=== PATIENT | female | born 1970 ===

== ENCOUNTER 2020-07-07 02:47 | Inpatient (IN) | payer MEDICARE, OTHER ==
[2020-07-07 10:51] LABS: Basophils % (Auto) 0.3 % (0.0-1.8); Eosinophils # (Auto) 0.1 K/mm3 (0.0-0.4); Eosinophils % (Auto) 0.3 % (0.0-4.3); Hematocrit 45.2 % (30.3-42.9); Hemoglobin 14.6 gm/dl (10.1-14.3); Lymphocytes # (Auto) 4.5 K/mm3 (1.2-5.4); Lymphocytes % (Auto) 28.9 % (13.4-35.0); Mean Corpuscular HGB Conc 32 % (30-34); Mean Corpuscular Volume 85 fl (79-97); Monocytes # (Auto) 1.1 K/mm3 (0.0-0.8); Monocytes % (Auto) 7.2 % (0.0-7.3); Platelet Count 393 K/mm3 (140-440); Red Blood Count 5.29 M/mm3 (3.65-5.03); Red Cell Distribution Width 17.7 % (13.2-15.2)
[2020-07-07 11:11] LABS: Albumin 4.7 g/dL (3.9-5); Calcium 10.2 mg/dL (8.4-10.2); Chol/HDL Ratio 3.97 %
--- NOTE | 2020-07-07 13:54 | Consultation ---
History of Present Illness - Reason for Consult Medical management Requesting physician: JUSTINO PETTY - History of Present Illness 49 YO Female with HTN, DM, Obesity Hypoventilation Syndrome admitted to [facility] for Psychiatric stabilization. Consult placed by Dr. Petty for medical management. Patient seen and evaluated in the recreation room. Patient resting comfortably. No reported nursing events. Patient denies pain. No reports of fever, chills, chest pain, palpitation, productive cough, skin rash, recent ill contacts, or known exposure to COVID-19. Past History Past Medical History: diabetes, hypertension Past Surgical History: No surgical history, Other (Reviewed) Social history: single. denies: smoking, alcohol abuse, prescription drug abuse Family history: diabetes, hypertension Medications and Allergies Allergies Allergy/AdvReac Type Severity Reaction Status Date / Time No Known Allergies Allergy Unverified 07/07/20 06:19 Home Medications Medication Instructions Recorded Confirmed Last Taken Type ALPRAZolam 1 mg PO BID 07/07/20 07/07/20 Unknown History ALPRAZolam [Xanax TAB] 0.25 mg PO BID PRN 07/07/20 07/07/[address] [DepCandi DR] 500 mg PO BID 07/07/20 07/07/20 Unknown History Gabapentin 400 mg PO TID 07/07/20 07/07/20 Unknown History Percocet 10/325 mg 10 mg PO TID 07/07/20 07/07/20 Unknown History Quetiapine Fumarate [SEROquel] 300 mg PO HS 07/07/20 07/07/20 Unknown History Sulfamethoxazole/Trimethoprim 1 each PO BID 07/07/20 07/07/20 Unknown History [Bactrim DS TAB] Venlafaxine [Effexor] 150 mg PO DAILY 07/07/20 07/07/20 Unknown History lisinopriL [Zestril] 20 mg PO DAILY 07/07/20 07/07/20 Unknown History Review of Systems Constitutional: no weight gain, no chills, no sweats Ears, nose, mouth and throat: no ear pain, no tinnitis, no nose pain, no nasal congestion, no nasal discharge Cardiovascular: no orthopnea, no edema, no syncope Respiratory: no excessive sputum, no hemoptysis Genitourinary Female: no stress incontinence, no post void dribbling, no incomplete emptying Rectal: no pain, no incontinence, no bleeding Musculoskeletal: no neck stiffness, no shooting arm pain, no low back pain, no shooting leg pain, no leg numbness/tingling Integumentary: no rash, no pruritis, no redness, no sores, no wounds Neurological: no head injury, no transient paralysis, no paralysis, no parathesias, no numbness, no tingling Psychiatric: no anxiety, no change in sleep habits, no sleep disturbances, no hypersomnia Endocrine: no cold intolerance, no polyphagia, no polyuria, no nocturia Hematologic/Lymphatic: no easy bruising, no easy bleeding Allergic/Immunologic: no urticaria, no allergic rhinitis, no wheezing Exam - Constitutional General appearance: Present: no acute distress, well-nourished - EENT Eyes: Present: PERRL ENT: hearing intact, clear oral mucosa - Neck Neck: Present: supple, normal ROM - Respiratory Respiratory effort: normal Respiratory: bilateral: CTA - Cardiovascular Heart Sounds: Present: S1 & S2. Absent: rub, click - Extremities Extremities: pulses symmetrical, No edema Peripheral Pulses: within normal limits - Abdominal General gastrointestinal: Present: soft, non-tender, non-distended, normal bowel sounds Female genitourinary: Present: normal - Integumentary Integumentary: Present: clear, warm, dry - Musculoskeletal Musculoskeletal: gait normal, strength equal bilaterally - Psychiatric Psychiatric: appropriate mood/affect, intact judgment & insight - Neurologic Neurologic: CNII-XII intact, moves all extremities Results - Labs CBC & Chem 7: 07/07/20 10:13 07/07/20 10:13 Labs: Abnormal lab results 07/07/20 07/07/20 07/07/20 Range/Units 10:13 10:13 10:22 WBC 15.6 H (4.5-11.0) K/mm3 RBC 5.29 H (3.65-5.03) M/mm3 Hgb 14.6 H (10.1-14.3) gm/dl Hct 45.2 H (30.3-42.9) % RDW 17.7 H (13.2-15.2) % [place] # (Auto) 1.1 H (0.0-0.8) K/mm3 Seg Neutrophils # 9.9 H (1.8-7.7) K/mm3 Potassium 3.3 L (3.6-5.0) mmol/L Chloride 97.7 L (98-107) mmol/L Glucose 184 H (65-100) mg/dL POC Glucose 148 H (70-105) mg/dL Total Protein 8.5 H (6.3-8.2) g/dL Triglycerides 178 H (2-149) mg/dL Assessment and Plan - Patient Problems (1) Hypertension Current Visit: Yes Status: Acute Qualifiers: Hypertension type: essential hypertension Qualified Code(s): I10 - Essential (primary) hypertension Plan to address problem: Monitor blood pressure every shift, continue medical management. (2) Diabetes Current Visit: Yes Status: Acute Plan to address problem: Insulin protocol, consistent carbohydrate diet, Accu-Chek.
[2020-07-07] MEDS: LISINOPRIL 20 MG TAB PO SCH (16:00)
[2020-07-07] MEDS ORDERED: PERCOCET PO SCH (20:00)
[2020-07-07] MEDS ORDERED: ALPRAZolam 0.25 MG TAB PO PRN (20:44)
[2020-07-07] MEDS: QUEtiapine 100 MG TAB PO SCH (21:29)
[2020-07-07] MEDS: oxyCODONE 5 MG TAB PO SCH (21:30)
[2020-07-07] MEDS: oxyCODONE /ACETAMINOPHEN 5-325MG TAB PO SCH (21:34)
[2020-07-07] MEDS: GABAPENTIN 400 MG CAP PO SCH (21:34)
[2020-07-07] MEDS: DIVALPROEX DR 500 MG TAB PO SCH (21:35)
[2020-07-07] MEDS: SULFAMETHOXAZOLE/TRIMETHOPRIM 800/160MG DS TAB PO SCH (21:35)
[2020-07-07] MEDS: ALPRAZolam 1 MG TAB PO SCH (21:35)
[2020-07-07] MEDS ORDERED: ALPRAZOLAM 1 MG PO SCH (22:00)
[2020-07-07] MEDS ORDERED: NON-FORMULARY EACH (Quetiapine Fumarate [Seroquel] 300 MG Tablet) PO SCH (22:00)
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
[2020-07-08] MEDS: DIVALPROEX DR 500 MG TAB PO SCH ×2 (09:39→21:20)
[2020-07-08] MEDS: GABAPENTIN 400 MG CAP PO SCH ×3 (09:39→20:00)
[2020-07-08] MEDS: MELOXICAM 7.5 MG TAB PO SCH (09:39)
[2020-07-08] MEDS: LISINOPRIL 20 MG TAB PO SCH (09:40)
[2020-07-08] MEDS: VENLAFAXINE 75 MG TAB PO SCH (09:40)
[2020-07-08] MEDS: ALPRAZolam 1 MG TAB PO SCH ×2 (09:40→21:20)
[2020-07-08] MEDS: SULFAMETHOXAZOLE/TRIMETHOPRIM 800/160MG DS TAB PO SCH ×2 (09:40→21:20)
[2020-07-08] MEDS: oxyCODONE 5 MG TAB PO SCH (09:43)
[2020-07-08] MEDS: oxyCODONE /ACETAMINOPHEN 5-325MG TAB PO SCH (09:44)
[2020-07-08] MEDS ORDERED: oxyCODONE /ACETAMINOPHEN 5-325MG TAB PO PRN (10:10)
[2020-07-08] MEDS: oxyCODONE /ACETAMINOPHEN 5-325MG TAB PO PRN ×2 (12:04→20:20)
[2020-07-08] MEDS: PRAZOSIN 1 MG CAP PO SCH (21:20)
[2020-07-08] MEDS: QUEtiapine 100 MG TAB PO SCH (21:22)
--- NOTE | 2020-07-09 08:03 | Progress Note ---
Subjective - Reason for Consult Consult date: 07/09/20 Reason for consult: MHE Requesting physician: JUSTINO PETTY - Chief Complaint Chief complaint: Psych Nurse: pt rested well during the night, presents as sleeping for approximately 9hrs, no distress noted, will continue to monitor for safety. pt spent the evening in her room lying in bed, pt is alert and orientedx4, calm and cooperative, able to make needs known, reported being worried about her son; she stated that her mother want to take her son away from her. pt reassured. pt's mood is stable, affect is appropriate. pt is complaint with medication,con sumed 100% of bedtime snack, percocet 5/325mg po given for hip back with bedtime medication with good effect, no distress noted, will continue to monitor for safety. pt rested well during the night, presents as sleeping for approximately 9hrs, no distress noted, will continue to monitor for safety. REVIEW OF SYSTEMS Constitutional: Negative for weight loss ENT: Negative for stridor Respiratory: Negative for cough or hemoptysis All other systems reviewed and are negative MENTAL STATUS EXAMINATION General Appearance and Behavior: Age appropriate, good hygiene, wearing appropriate clothes,, good eye contact Cooperation: Participating/engaged, but Guarded Psychomotor Behavior: Psychomotor normal Mood: depressed Affect and affective range: irritable, labile Thought Process: illogical Thought Content: hopelessness, helplessness Speech: Normal rate, volume and rythm Intellectual Functioning: Average Suicidal Ideation: Intermittent SI Homicidal Ideation: Denies HI Impulse Control: Impaired Insight and Judgment: Limited insight and judgment Memory: Normal Attention: Normal Orientation: Alert, oriented Assessment and Plan - Psychiatric problem (1) MDD (major depressive disorder), recurrent episode, severe Current Visit: Yes Status: Acute F33.2 (2) Schizoaffective disorder Current Visit: Yes Status: Acute F25.9 Treatment Plan Will restart home medications Patient admitted for inpatient psychiatric evaluation, medication adjustment and close monitoring The patient's behavior, mood, sleep and appetite will be closely monitored. Patient enrolled in individual and group therapeutic sessions and encouraged to attend. Patient provided with a safe and structured environment. Patient's physical health needs will be addressed by the Hospitalist. Hospitalist Consulted Labs including CBC, CMP, Lipid profile and Hemoglobin A1C levels ordered for baseline reference Social Assessment will be completed and the Bag Sorter will work with patient and family to ensure a suitable and safe disposition Medication adjustment will be made as clinically indicated Usual Wellness Christianity/Preservation: - Start Trazodone 50 mg po QHS & 50 mg po QHS PRN between 10 PM & 2 AM for insomnia - Start Melatonin 5 mg po QHS to promote circadian rhythm - Start [place]-3 for brain health, reduce impulsivity, and as adjunctive treatment for mood disorder, continue upon discharge given overall benefits. - Start B1 prophylaxis with 200 mg po for 5 days The patient agreed on the treatment plan, understood the risk, benefit, alternative treatment, potential consequence of no treatment, and gave informed consent. Initial Certification Inpatient psych services: I certify that the inpatient psychiatric services are required for treatment that could reasonably be expected to improve the patient's condition. Estimated days: 7 Post hospital care: primary care provider, psychiatric provider Mental Status Exam - Vital signs Last Vital Signs Temp 97.5 F L 07/08/20 20:00 Pulse 89 07/08/20 21:20 Resp 18 07/08/20 20:20 BP 121/67 07/08/20 21:20 Pulse Ox 96 07/08/20 20:00 Assessment and Plan - Patient Problems (1) MDD (major depressive disorder), recurrent episode, severe Current Visit: Yes Status: Acute (2) Schizoaffective disorder Current Visit: Yes Status: Acute
--- NOTE | 2020-07-09 08:08 | Progress Note ---
Subjective Date of service: 07/09/20 Principal diagnosis: MDD (major depressive disorder), recurrent episode, severe Subjective Comment: Chief complaint: Psych Nurse: pt rested well during the night, presents as sleeping for approximately 9hrs, no distress noted, will continue to monitor for safety. pt spent the evening in her room lying in bed, pt is alert and orientedx4, calm and cooperative, able to make needs known, reported being worried about her son; she stated that her mother want to take her son away from her. pt reassured. pt's mood is stable, affect is appropriate. pt is complaint with medication,consumed 100% of bedtime snack, percocet 5/325mg po given for hip back with bedtime medication with good effect, no distress noted, will continue to monitor for safety. pt rested well during the night, presents as sleeping for approximately 9hrs, no distress noted, will continue to monitor for safety. Psych Progress Patient seen this AM, endorses mood as sad but trying to get better, lovers her mom says their relationship keeps getting strained and is not good for her health. SHe reports living with mom for over 8 years, and now it seems like mom wants her out of the house based on their poor phone conversation. She says she is more concerned of her son, moving into a place with unknown security and new school and environment. SHe denies SI, HI but endorses being very depressed. Improved sleep and appetite just okay. REVIEW OF SYSTEMS Constitutional: Negative for weight loss ENT: Negative for stridor Respiratory: Negative for cough or hemoptysis All other systems reviewed and are negative MENTAL STATUS EXAMINATION General Appearance and Behavior: Age appropriate, good hygiene, wearing appropriate clothes,, good eye contact Cooperation: Participating/engaged, Psychomotor Behavior: Psychomotor normal Mood: depressed Affect and affective range: labile Thought Process: logical Thought Content: hopelessness, helplessness Speech: Normal rate, volume and rythm Intellectual Functioning: Average Suicidal Ideation: denies Homicidal Ideation: Denies HI Impulse Control: unimpaired Insight and Judgment: Limited insight and judgment Memory: Normal Attention: Normal Orientation: Alert, oriented Assessment and Plan - Psychiatric problem (1) MDD (major depressive disorder), recurrent episode, severe Current Visit: Yes Status: Acute F33.2 (2) Schizoaffective disorder Current Visit: Yes Status: Acute F25.9 Treatment Plan Continue current medications Patient admitted for inpatient psychiatric evaluation, medication adjustment and close monitoring The patient's behavior, mood, sleep and appetite will be closely monitored. Patient enrolled in individual and group therapeutic sessions and encouraged to attend. Patient provided with a safe and structured environment. Patient's physical health needs will be addressed by the Hospitalist. Hospitalist Consulted Labs including CBC, CMP, Lipid profile and Hemoglobin A1C levels ordered for baseline reference Social Assessment will be completed and the Guard Manager will work with patient and family to ensure a suitable and safe disposition Medication adjustment will be made as clinically indicated Usual Wellness Taoism/Preservation: - Start Trazodone 50 mg po QHS & 50 mg po QHS PRN between 10 PM & 2 AM for insomnia - Start Melatonin 5 mg po QHS to promote circadian rhythm - Start [place]-3 for brain health, reduce impulsivity, and as adjunctive treatment for mood disorder, continue upon discharge given overall benefits. - Start B1 prophylaxis with 200 mg po for 5 days The patient agreed on the treatment plan, understood the risk, benefit, alternative treatment, potential consequence of no treatment, and gave informed consent. Initial Certification Inpatient psych services: I certify that the inpatient psychiatric services are required for treatment that could reasonably be expected to improve the patient's condition. Estimated days: 7 Post hospital care: primary care provider, psychiatric provider Assessment and Plan - Patient Problems (1) MDD (major depressive disorder), recurrent episode, severe Current Visit: Yes Status: Acute (2) Schizoaffective disorder Current Visit: Yes Status: Acute Medications and Allergies Allergies Allergy/AdvReac Type Severity Reaction Status Date / Time No Known Allergies Allergy Unverified 07/07/20 06:19 Home Medications Medication Instructions Recorded Confirmed Last Taken Type ALPRAZolam 1 mg PO BID 07/07/20 07/07/20 Unknown History ALPRAZolam [Xanax TAB] 0.25 mg PO BID PRN 07/07/20 07/07/20 Unknown History Divalproex [Jessica RIVERA] 500 mg PO BID 07/07/20 07/07/20 Unknown History Gabapentin 400 mg PO TID 07/07/20 07/07/20 Unknown History Percocet 10/325 mg 10 mg PO TID 07/07/20 07/07/20 Unknown History Quetiapine Fumarate [SEROquel] 300 mg PO HS 07/07/20 07/07/20 Unknown History Sulfamethoxazole/Trimethoprim 1 each PO BID 07/07/20 07/07/20 Unknown History [Bactrim DS TAB] Venlafaxine [Effexor] 150 mg PO DAILY 07/07/20 07/07/20 Unknown History lisinopriL [Zestril] 20 mg PO DAILY 07/07/20 07/07/20 Unknown History Active Meds: Active Medications Alprazolam (Alprazolam 1 Mg Tab) 1 mg PO BID [facility] Last Admin: 07/08/20 21:20 Dose: 1 mg Documented by: Alprazolam (Alprazolam 0.25 Mg Tab) 0.25 mg PO BID PRN PRN Reason: Anxiety Divalproex Sodium (Divalproex Dr 500 Mg Tab) 500 mg PO BID [facility] Last Admin: 07/08/20 21:20 Dose: 500 mg Documented by: Gabapentin (Gabapentin 400 Mg Cap) 400 mg PO TID [facility] Last Admin: 07/08/20 20:00 Dose: 400 mg Documented by: Lisinopril (Lisinopril 20 Mg Tab) 20 mg PO DAILY [facility] Last Admin: 07/08/20 09:40 Dose: 20 mg Documented by: Meloxicam (Meloxicam 7.5 Mg Tab) 7.5 mg PO QDAY [facility] Last Admin: 07/08/20 09:39 Dose: 7.5 mg Documented by: Oxycodone/Acetaminophen (Oxycodone /Acetaminophen 5-325mg Tab) 1 tab PO Q8H PRN PRN Reason: Pain, Moderate (4-6) Last Admin: 07/08/20 20:20 Dose: 1 tab Documented by: Prazosin HCl (Prazosin 1 Mg Cap) 3 mg PO QHS [facility] Last Admin: 07/08/20 21:20 Dose: 3 mg Documented by: Quetiapine Fumarate (Quetiapine 100 Mg Tab) 300 mg PO QHS [facility] Last Admin: 07/08/20 21:22 Dose: 300 mg Documented by: Trimethoprim/Sulfamethoxazole (Sulfamethoxazole/Trimethoprim 800/160mg Ds Tab) 1 each PO BID [facility]; Protocol Stop: 07/14/20 10:01 Last Admin: 07/08/20 21:20 Dose: 1 each Documented by: Venlafaxine HCl (Venlafaxine 75 Mg Tab) 150 mg PO DAILY [facility] Last Admin: 07/08/20 09:40 Dose: 150 mg Documented by: Results - Results Labs/Vitals: Laboratory Last Values WBC 15.6 K/mm3 (4.5-11.0) H 07/07/20 10:13 RBC 5.29 M/mm3 (3.65-5.03) H 07/07/20 10:13 Hgb 14.6 gm/dl (10.1-14.3) H 07/07/20 10:13 Hct 45.2 % (30.3-42.9) H 07/07/20 10:13 MCV 85 fl (79-97) 07/07/20 10:13 MCH 28 pg (28-32) 07/07/20 10:13 MCHC 32 % (30-34) 07/07/20 10:13 RDW 17.7 % (13.2-15.2) H 07/07/20 10:13 Plt Count 393 K/mm3 (140-440) 07/07/20 10:13 Lymph % (Auto) 28.9 % (13.4-35.0) 07/07/20 10:13 [place] % (Auto) 7.2 % (0.0-7.3) 07/07/20 10:13 Eos % (Auto) 0.3 % (0.0-4.3) 07/07/20 10:13 Baso % (Auto) 0.3 % (0.0-1.8) 07/07/20 10:13 Lymph # (Auto) 4.5 K/mm3 (1.2-5.4) 07/07/20 10:13 [place] # (Auto) 1.1 K/mm3 (0.0-0.8) H 07/07/20 10:13 Eos # (Auto) 0.1 K/mm3 (0.0-0.4) 07/07/20 10:13 Baso # (Auto) 0.0 K/mm3 (0.0-0.1) 07/07/20 10:13 Seg Neutrophils % 63.3 % (40.0-70.0) 07/07/20 10:13 Seg Neutrophils # 9.9 K/mm3 (1.8-7.7) H 07/07/20 10:13 Sodium 140 mmol/L (137-145) 07/07/20 10:13 Potassium 3.3 mmol/L (3.6-5.0) L 07/07/20 10:13 Chloride 97.7 mmol/L (98-107) L 07/07/20 10:13 Carbon Dioxide 26 mmol/L (22-30) 07/07/20 10:13 Anion Gap 20 mmol/L 07/07/20 10:13 BUN 13 mg/dL (7-17) 07/07/20 10:13 Creatinine 1.1 mg/dL (0.6-1.2) 07/07/20 10:13 Estimated GFR 53 ml/min 07/07/20 10:13 BUN/Creatinine Ratio 12 % 07/07/20 10:13 Glucose 184 mg/dL (65-100) H 07/07/20 10:13 POC Glucose 103 mg/dL (70-105) 07/09/20 06:29 Hemoglobin A1c 5.8 % (4-6) 07/07/20 10:13 Calcium 10.2 mg/dL (8.4-10.2) 07/07/20 10:13 Total Bilirubin 0.40 mg/dL (0.1-1.2) 07/07/20 10:13 AST 28 units/L (5-40) 07/07/20 10:13 ALT 27 units/L (7-56) 07/07/20 10:13 Alkaline Phosphatase 81 units/L (35-129) 07/07/20 10:13 Total Protein 8.5 g/dL (6.3-8.2) H 07/07/20 10:13 Albumin 4.7 g/dL (3.9-5) 07/07/20 10:13 Albumin/Globulin Ratio 1.2 % 07/07/20 10:13 Triglycerides 178 mg/dL (2-149) H 07/07/20 10:13 Cholesterol 187 mg/dL (50-199) 07/07/20 10:13 LDL Cholesterol Direct 110 mg/dL (50-130) 07/07/20 10:13 HDL Cholesterol 47 mg/dL (40-59) 07/07/20 10:13 Cholesterol/HDL Ratio 3.97 % 07/07/20 10:13 TSH 0.534 mlU/mL (0.270-4.200) 07/07/20 10:13 Last Vital Signs Temp 97.5 F L 07/08/20 20:00 Pulse 89 07/08/20 21:20 Resp 18 07/08/20 20:20 BP 121/67 07/08/20 21:20 Pulse Ox 96 07/08/20 20:00
[2020-07-09] MEDS: DIVALPROEX DR 500 MG TAB PO SCH ×2 (09:15→21:13)
[2020-07-09] MEDS: ALPRAZolam 1 MG TAB PO SCH ×2 (09:15→21:13)
[2020-07-09] MEDS: LISINOPRIL 20 MG TAB PO SCH (09:15)
[2020-07-09] MEDS: VENLAFAXINE 75 MG TAB PO SCH (09:15)
[2020-07-09] MEDS: GABAPENTIN 400 MG CAP PO SCH ×3 (09:15→21:12)
[2020-07-09] MEDS: MELOXICAM 7.5 MG TAB PO SCH (09:16)
[2020-07-09] MEDS: SULFAMETHOXAZOLE/TRIMETHOPRIM 800/160MG DS TAB PO SCH ×2 (09:16→21:13)
[2020-07-09] MEDS: oxyCODONE /ACETAMINOPHEN 5-325MG TAB PO PRN ×2 (12:32→23:35)
[2020-07-09] MEDS: PRAZOSIN 1 MG CAP PO SCH (21:11)
[2020-07-09] MEDS: QUEtiapine 100 MG TAB PO SCH (21:13)
--- NOTE | 2020-07-10 08:15 | Progress Note ---
Subjective Date of service: 07/10/20 Principal diagnosis: MDD (major depressive disorder), recurrent episode, severe Subjective Comment: Psych Nurse: Patient slept late this morning. The rest of the day she has spent in the activity room watching tv and resting in the recliner. She requested pain medication at around 1230. Percocet was given and it was effective. Patient is A&O x 4. She denies si/hi/ah/vh. Patient presents as sad and depressed. Her mother called this morning and requested a call from social work Saturday morning. Patient is eating 100% of meals and is medication compliant. Will continue to monitor patient for safety. Psych Progress Patient seen this a.m., patient reports sleeping good, reports her mood has been okay, she also reports improved appetite and states that is a good sign for her that she is getting better. Patient denies SI HI, denies auditory visual hallucination, endorses intermittent sadness when she thinks about her housing situation and his son, but reports adequate communication with his son and that makes her happy. Patient also endorses doing hygiene. REVIEW OF SYSTEMS Constitutional: Negative for weight loss ENT: Negative for stridor Respiratory: Negative for cough or hemoptysis All other systems reviewed and are negative MENTAL STATUS EXAMINATION General Appearance and Behavior: Age appropriate, good hygiene, wearing appropriate clothes,, good eye contact Cooperation: Participating/engaged, Psychomotor Behavior: Psychomotor normal Mood: getting better Affect and affective range: congruent with affect Thought Process: logical Thought Content: within reality Speech: Normal rate, volume and rythm Intellectual Functioning: Average Suicidal Ideation: denies SI Homicidal Ideation: Denies HI Impulse Control: unimpaired Insight and Judgment: Improved insight and judgment Memory: Normal Attention: Normal Orientation: Alert, oriented Assessment and Plan - Psychiatric problem (1) MDD (major depressive disorder), recurrent episode, severe Current Visit: Yes Status: Acute F33.2 (2) Schizoaffective disorder Current Visit: Yes Status: Acute F25.9 Treatment Plan Continue current medications Patient admitted for inpatient psychiatric evaluation, medication adjustment and close monitoring The patient's behavior, mood, sleep and appetite will be closely monitored. Patient enrolled in individual and group therapeutic sessions and encouraged to attend. Patient provided with a safe and structured environment. Patient's physical health needs will be addressed by the Hospitalist. Hospitalist Consulted Labs including CBC, CMP, Lipid profile and Hemoglobin A1C levels ordered for baseline reference Social Assessment will be completed and the Formula Checker will work with patient and family to ensure a suitable and safe disposition Medication adjustment will be made as clinically indicated Usual Wellness Restorationist/Preservation: - Start Trazodone 50 mg po QHS & 50 mg po QHS PRN between 10 PM & 2 AM for insomnia - Start Melatonin 5 mg po QHS to promote circadian rhythm - Start [place]-3 for brain health, reduce impulsivity, and as adjunctive treatment for mood disorder, continue upon discharge given overall benefits. - Start B1 prophylaxis with 200 mg po for 5 days The patient agreed on the treatment plan, understood the risk, benefit, alternative treatment, potential consequence of no treatment, and gave informed consent. Initial Certification Inpatient psych services: I certify that the inpatient psychiatric services are required for treatment that could reasonably be expected to improve the patient's condition. Estimated days: 7 Post hospital care: primary care provider, psychiatric provider Assessment and Plan - Patient Problems (1) MDD (major depressive disorder), recurrent episode, severe Current Visit: Yes Status: Acute (2) Schizoaffective disorder Current Visit: Yes Status: Acute Medications and Allergies Allergies Allergy/AdvReac Type Severity Reaction Status Date / Time No Known Allergies Allergy Unverified 07/07/20 06:19 Home Medications Medication Instructions Recorded Confirmed Last Taken Type ALPRAZolam 1 mg PO BID 07/07/20 07/07/20 Unknown History ALPRAZolam [Xanax TAB] 0.25 mg PO BID PRN 07/07/20 07/07/[address] [DepCandi RIVERA] 500 mg PO BID 07/07/20 07/07/20 Unknown History Gabapentin 400 mg PO TID 07/07/20 07/07/20 Unknown History Percocet 10/325 mg 10 mg PO TID 07/07/20 07/07/20 Unknown History Quetiapine Fumarate [SEROquel] 300 mg PO HS 07/07/20 07/07/20 Unknown History Sulfamethoxazole/Trimethoprim 1 each PO BID 07/07/20 07/07/20 Unknown History [Bactrim DS TAB] Venlafaxine [Effexor] 150 mg PO DAILY 07/07/20 07/07/20 Unknown History lisinopriL [Zestril] 20 mg PO DAILY 07/07/20 07/07/20 Unknown History Active Meds: Active Medications Alprazolam (Alprazolam 1 Mg Tab) 1 mg PO BID [facility] Last Admin: 07/09/20 21:13 Dose: 1 mg Documented by: Alprazolam (Alprazolam 0.25 Mg Tab) 0.25 mg PO BID PRN PRN Reason: Anxiety Divalproex Sodium (Divalproex Dr 500 Mg Tab) 500 mg PO BID [facility] Last Admin: 07/09/20 21:13 Dose: 500 mg Documented by: Gabapentin (Gabapentin 400 Mg Cap) 400 mg PO TID [facility] Last Admin: 07/09/20 21:12 Dose: 400 mg Documented by: Lisinopril (Lisinopril 20 Mg Tab) 20 mg PO DAILY [facility] Last Admin: 07/09/20 09:15 Dose: 20 mg Documented by: Meloxicam (Meloxicam 7.5 Mg Tab) 7.5 mg PO QDAY [facility] Last Admin: 07/09/20 09:16 Dose: 7.5 mg Documented by: Oxycodone/Acetaminophen (Oxycodone /Acetaminophen 5-325mg Tab) 1 tab PO Q8H PRN PRN Reason: Pain, Moderate (4-6) Last Admin: 07/09/20 23:35 Dose: 1 tab Documented by: Prazosin HCl (Prazosin 1 Mg Cap) 3 mg PO QHS [facility] Last Admin: 07/09/20 21:11 Dose: 3 mg Documented by: Quetiapine Fumarate (Quetiapine 100 Mg Tab) 300 mg PO QHS [facility] Last Admin: 07/09/20 21:13 Dose: 300 mg Documented by: Trimethoprim/Sulfamethoxazole (Sulfamethoxazole/Trimethoprim 800/160mg Ds Tab) 1 each PO BID [facility]; Protocol Stop: 07/14/20 10:01 Last Admin: 07/09/20 21:13 Dose: 1 each Documented by: Venlafaxine HCl (Venlafaxine 75 Mg Tab) 150 mg PO DAILY [facility] Last Admin: 07/09/20 09:15 Dose: 150 mg Documented by: Results - Results Labs/Vitals: Laboratory Last Values WBC 15.6 K/mm3 (4.5-11.0) H 07/07/20 10:13 RBC 5.29 M/mm3 (3.65-5.03) H 07/07/20 10:13 Hgb 14.6 gm/dl (10.1-14.3) H 07/07/20 10:13 Hct 45.2 % (30.3-42.9) H 07/07/20 10:13 MCV 85 fl (79-97) 07/07/20 10:13 MCH 28 pg (28-32) 07/07/20 10:13 MCHC 32 % (30-34) 07/07/20 10:13 RDW 17.7 % (13.2-15.2) H 07/07/20 10:13 Plt Count 393 K/mm3 (140-440) 07/07/20 10:13 Lymph % (Auto) 28.9 % (13.4-35.0) 07/07/20 10:13 [place] % (Auto) 7.2 % (0.0-7.3) 07/07/20 10:13 Eos % (Auto) 0.3 % (0.0-4.3) 07/07/20 10:13 Baso % (Auto) 0.3 % (0.0-1.8) 07/07/20 10:13 Lymph # (Auto) 4.5 K/mm3 (1.2-5.4) 07/07/20 10:13 [place] # (Auto) 1.1 K/mm3 (0.0-0.8) H 07/07/20 10:13 Eos # (Auto) 0.1 K/mm3 (0.0-0.4) 07/07/20 10:13 Baso # (Auto) 0.0 K/mm3 (0.0-0.1) 07/07/20 10:13 Seg Neutrophils % 63.3 % (40.0-70.0) 07/07/20 10:13 Seg Neutrophils # 9.9 K/mm3 (1.8-7.7) H 07/07/20 10:13 Sodium 140 mmol/L (137-145) 07/07/20 10:13 Potassium 3.3 mmol/L (3.6-5.0) L 07/07/20 10:13 Chloride 97.7 mmol/L (98-107) L 07/07/20 10:13 Carbon Dioxide 26 mmol/L (22-30) 07/07/20 10:13 Anion Gap 20 mmol/L 07/07/20 10:13 BUN 13 mg/dL (7-17) 07/07/20 10:13 Creatinine 1.1 mg/dL (0.6-1.2) 07/07/20 10:13 Estimated GFR 53 ml/min 07/07/20 10:13 BUN/Creatinine Ratio 12 % 07/07/20 10:13 Glucose 184 mg/dL (65-100) H 07/07/20 10:13 POC Glucose 99 mg/dL (70-105) 07/10/20 07:43 Hemoglobin A1c 5.8 % (4-6) 07/07/20 10:13 Calcium 10.2 mg/dL (8.4-10.2) 07/07/20 10:13 Total Bilirubin 0.40 mg/dL (0.1-1.2) 07/07/20 10:13 AST 28 units/L (5-40) 07/07/20 10:13 ALT 27 units/L (7-56) 07/07/20 10:13 Alkaline Phosphatase 81 units/L (35-129) 07/07/20 10:13 Total Protein 8.5 g/dL (6.3-8.2) H 07/07/20 10:13 Albumin 4.7 g/dL (3.9-5) 07/07/20 10:13 Albumin/Globulin Ratio 1.2 % 07/07/20 10:13 Triglycerides 178 mg/dL (2-149) H 07/07/20 10:13 Cholesterol 187 mg/dL (50-199) 07/07/20 10:13 LDL Cholesterol Direct 110 mg/dL (50-130) 07/07/20 10:13 HDL Cholesterol 47 mg/dL (40-59) 07/07/20 10:13 Cholesterol/HDL Ratio 3.97 % 07/07/20 10:13 TSH 0.534 mlU/mL (0.270-4.200) 07/07/20 10:13 Last Vital Signs Temp 98.1 F 07/09/20 19:46 Pulse 88 07/09/20 21:11 Resp 18 07/09/20 19:46 BP 126/79 07/09/20 21:11 Pulse Ox 95 07/09/20 19:46
[2020-07-10] MEDS: GABAPENTIN 400 MG CAP PO SCH ×3 (08:35→20:59)
[2020-07-10] MEDS: MELOXICAM 7.5 MG TAB PO SCH (09:08)
[2020-07-10] MEDS: LISINOPRIL 20 MG TAB PO SCH (09:08)
[2020-07-10] MEDS: DIVALPROEX DR 500 MG TAB PO SCH ×2 (09:08→21:00)
[2020-07-10] MEDS: VENLAFAXINE 75 MG TAB PO SCH (09:08)
[2020-07-10] MEDS: ALPRAZolam 1 MG TAB PO SCH ×2 (09:09→21:01)
[2020-07-10] MEDS: SULFAMETHOXAZOLE/TRIMETHOPRIM 800/160MG DS TAB PO SCH ×2 (09:09→21:02)
[2020-07-10] MEDS: oxyCODONE /ACETAMINOPHEN 5-325MG TAB PO SCH ×2 (13:15→20:59)
[2020-07-10] MEDS: QUEtiapine 100 MG TAB PO SCH (21:01)
[2020-07-10] MEDS: PRAZOSIN 1 MG CAP PO SCH (21:03)
--- NOTE | 2020-07-11 07:42 | Progress Note ---
Subjective Date of service: 07/11/20 Principal diagnosis: MDD (major depressive disorder), recurrent episode, severe Subjective Comment: Psych Nurse: Patient spent the day in the dayroom sitting in a reclining chair, she is alert and oriented X4, calm and cooperative. She is complaint with medication, seen interact with peers, and watching tv. Schedule percocet 5/325mg po given for hip back with good effect, pt denies si/hi and a/v/h, no distress noted, will continue to monitor. Psych Progress Patient seen this AM, patient reports she feels much better, not only as her sleep improved greatly, also her mood and life expectations. Patient states she is looking forward to social workers and her moms conversation, to see what chances and options she has. She denies SI, HI. Reason for inpatient: Patients depakote being titrated, levels subtherapeutic. REVIEW OF SYSTEMS Constitutional: Negative for weight loss ENT: Negative for stridor Respiratory: Negative for cough or hemoptysis All other systems reviewed and are negative MENTAL STATUS EXAMINATION General Appearance and Behavior: Age appropriate, good hygiene, wearing appropriate clothes,, good eye contact Cooperation: Participating/engaged, Psychomotor Behavior: Psychomotor normal Mood: getting better Affect and affective range: congruent with affect Thought Process: logical Thought Content: within reality Speech: Normal rate, volume and rythm Intellectual Functioning: Average Suicidal Ideation: denies SI Homicidal Ideation: Denies HI Impulse Control: unimpaired Insight and Judgment: Improved insight and judgment Memory: Normal Attention: Normal Orientation: Alert, oriented Assessment and Plan - Psychiatric problem (1) MDD (major depressive disorder), recurrent episode, severe Current Visit: Yes Status: Acute F33.2 (2) Schizoaffective disorder Current Visit: Yes Status: Acute F25.9 Treatment Plan Continue current medications Patient admitted for inpatient psychiatric evaluation, medication adjustment and close monitoring The patient's behavior, mood, sleep and appetite will be closely monitored. Patient enrolled in individual and group therapeutic sessions and encouraged to attend. Patient provided with a safe and structured environment. Patient's physical health needs will be addressed by the Hospitalist. Hospitalist Consulted Labs including CBC, CMP, Lipid profile and Hemoglobin A1C levels ordered for baseline reference Social Assessment will be completed and the Cable Ferry Operator will work with patient and family to ensure a suitable and safe disposition Medication adjustment will be made as clinically indicated Usual Wellness Adventist/Preservation: - Start Trazodone 50 mg po QHS & 50 mg po QHS PRN between 10 PM & 2 AM for insomnia - Start Melatonin 5 mg po QHS to promote circadian rhythm - Start [place]-3 for brain health, reduce impulsivity, and as adjunctive treatment for mood disorder, continue upon discharge given overall benefits. - Start B1 prophylaxis with 200 mg po for 5 days The patient agreed on the treatment plan, understood the risk, benefit, alternative treatment, potential consequence of no treatment, and gave informed consent. Initial Certification Inpatient psych services: I certify that the inpatient psychiatric services are required for treatment that could reasonably be expected to improve the patient's condition. Estimated days: 3 Post hospital care: primary care provider, psychiatric provider Assessment and Plan - Patient Problems (1) MDD (major depressive disorder), recurrent episode, severe Current Visit: Yes Status: Acute (2) Schizoaffective disorder Current Visit: Yes Status: Acute Medications and Allergies Allergies Allergy/AdvReac Type Severity Reaction Status Date / Time No Known Allergies Allergy Unverified 07/07/20 06:19 Home Medications Medication Instructions Recorded Confirmed Last Taken Type ALPRAZolam 1 mg PO BID 07/07/20 07/07/20 Unknown History ALPRAZolam [Xanax TAB] 0.25 mg PO BID PRN 07/07/20 07/07/20 Unknown History Divalproex [Jessica RIVERA] 500 mg PO BID 07/07/20 07/07/20 Unknown History Gabapentin 400 mg PO TID 07/07/20 07/07/20 Unknown History Percocet 10/325 mg 10 mg PO TID 07/07/20 07/07/20 Unknown History Quetiapine Fumarate [SEROquel] 300 mg PO HS 07/07/20 07/07/20 Unknown History Sulfamethoxazole/Trimethoprim 1 each PO BID 07/07/20 07/07/20 Unknown History [Bactrim DS TAB] Venlafaxine [Effexor] 150 mg PO DAILY 07/07/20 07/07/20 Unknown History lisinopriL [Zestril] 20 mg PO DAILY 07/07/20 07/07/20 Unknown History Active Meds: Active Medications Alprazolam (Alprazolam 1 Mg Tab) 1 mg PO BID TYLER Last Admin: 07/10/20 21:01 Dose: 1 mg Documented by: Alprazolam (Alprazolam 0.25 Mg Tab) 0.25 mg PO BID PRN PRN Reason: Anxiety Divalproex Sodium (Divalproex Dr 500 Mg Tab) 500 mg PO BID [facility] Last Admin: 07/10/20 21:00 Dose: 500 mg Documented by: Gabapentin (Gabapentin 400 Mg Cap) 400 mg PO TID [facility] Last Admin: 07/10/20 20:59 Dose: 400 mg Documented by: Lisinopril (Lisinopril 20 Mg Tab) 20 mg PO DAILY [facility] Last Admin: 07/10/20 09:08 Dose: 20 mg Documented by: Meloxicam (Meloxicam 7.5 Mg Tab) 7.5 mg PO QDAY [facility] Last Admin: 07/10/20 09:08 Dose: 7.5 mg Documented by: Oxycodone/Acetaminophen (Oxycodone /Acetaminophen 5-325mg Tab) 1 tab PO TID [facility] Last Admin: 07/10/20 20:59 Dose: 1 tab Documented by: Prazosin HCl (Prazosin 1 Mg Cap) 3 mg PO QHS [facility] Last Admin: 07/10/20 21:03 Dose: 3 mg Documented by: Quetiapine Fumarate (Quetiapine 100 Mg Tab) 300 mg PO QHS [facility] Last Admin: 07/10/20 21:01 Dose: 300 mg Documented by: Trimethoprim/Sulfamethoxazole (Sulfamethoxazole/Trimethoprim 800/160mg Ds Tab) 1 each PO BID [facility]; Protocol Stop: 07/14/20 10:01 Last Admin: 07/10/20 21:02 Dose: 1 each Documented by: Venlafaxine HCl (Venlafaxine 75 Mg Tab) 150 mg PO DAILY [facility] Last Admin: 07/10/20 09:08 Dose: 150 mg Documented by: Results - Results Labs/Vitals: Laboratory Last Values WBC 15.6 K/mm3 (4.5-11.0) H 07/07/20 10:13 RBC 5.29 M/mm3 (3.65-5.03) H 07/07/20 10:13 Hgb 14.6 gm/dl (10.1-14.3) H 07/07/20 10:13 Hct 45.2 % (30.3-42.9) H 07/07/20 10:13 MCV 85 fl (79-97) 07/07/20 10:13 MCH 28 pg (28-32) 07/07/20 10:13 MCHC 32 % (30-34) 07/07/20 10:13 RDW 17.7 % (13.2-15.2) H 07/07/20 10:13 Plt Count 393 K/mm3 (140-440) 07/07/20 10:13 Lymph % (Auto) 28.9 % (13.4-35.0) 07/07/20 10:13 [place] % (Auto) 7.2 % (0.0-7.3) 07/07/20 10:13 Eos % (Auto) 0.3 % (0.0-4.3) 07/07/20 10:13 Baso % (Auto) 0.3 % (0.0-1.8) 07/07/20 10:13 Lymph # (Auto) 4.5 K/mm3 (1.2-5.4) 07/07/20 10:13 [place] # (Auto) 1.1 K/mm3 (0.0-0.8) H 07/07/20 10:13 Eos # (Auto) 0.1 K/mm3 (0.0-0.4) 07/07/20 10:13 Baso # (Auto) 0.0 K/mm3 (0.0-0.1) 07/07/20 10:13 Seg Neutrophils % 63.3 % (40.0-70.0) 07/07/20 10:13 Seg Neutrophils # 9.9 K/mm3 (1.8-7.7) H 07/07/20 10:13 Sodium 140 mmol/L (137-145) 07/07/20 10:13 Potassium 3.3 mmol/L (3.6-5.0) L 07/07/20 10:13 Chloride 97.7 mmol/L (98-107) L 07/07/20 10:13 Carbon Dioxide 26 mmol/L (22-30) 07/07/20 10:13 Anion Gap 20 mmol/L 07/07/20 10:13 BUN 13 mg/dL (7-17) 07/07/20 10:13 Creatinine 1.1 mg/dL (0.6-1.2) 07/07/20 10:13 Estimated GFR 53 ml/min 07/07/20 10:13 BUN/Creatinine Ratio 12 % 07/07/20 10:13 Glucose 184 mg/dL (65-100) H 07/07/20 10:13 POC Glucose 95 mg/dL (70-105) 07/11/20 07:35 Hemoglobin A1c 5.8 % (4-6) 07/07/20 10:13 Calcium 10.2 mg/dL (8.4-10.2) 07/07/20 10:13 Total Bilirubin 0.40 mg/dL (0.1-1.2) 07/07/20 10:13 AST 28 units/L (5-40) 07/07/20 10:13 ALT 27 units/L (7-56) 07/07/20 10:13 Alkaline Phosphatase 81 units/L (35-129) 07/07/20 10:13 Total Protein 8.5 g/dL (6.3-8.2) H 07/07/20 10:13 Albumin 4.7 g/dL (3.9-5) 07/07/20 10:13 Albumin/Globulin Ratio 1.2 % 07/07/20 10:13 Triglycerides 178 mg/dL (2-149) H 07/07/20 10:13 Cholesterol 187 mg/dL (50-199) 07/07/20 10:13 LDL Cholesterol Direct 110 mg/dL (50-130) 07/07/20 10:13 HDL Cholesterol 47 mg/dL (40-59) 07/07/20 10:13 Cholesterol/HDL Ratio 3.97 % 07/07/20 10:13 TSH 0.534 mlU/mL (0.270-4.200) 07/07/20 10:13 Valproic Acid 49.1 ug/mL (50-100) L 07/10/20 13:09 Last Vital Signs Temp 98.6 F 07/10/20 19:22 Pulse 89 07/10/20 21:03 Resp 18 07/10/20 19:22 BP 125/67 07/10/20 21:03 Pulse Ox 95 07/10/20 19:22
[2020-07-11] MEDS: oxyCODONE /ACETAMINOPHEN 5-325MG TAB PO SCH ×3 (09:42→20:33)
[2020-07-11] MEDS: GABAPENTIN 400 MG CAP PO SCH ×3 (09:43→20:33)
[2020-07-11] MEDS: ALPRAZolam 1 MG TAB PO SCH ×2 (09:43→21:26)
[2020-07-11] MEDS: DIVALPROEX DR 500 MG TAB PO SCH ×2 (09:43→21:25)
[2020-07-11] MEDS: VENLAFAXINE 75 MG TAB PO SCH (09:43)
[2020-07-11] MEDS: LISINOPRIL 20 MG TAB PO SCH (09:46)
[2020-07-11] MEDS: MELOXICAM 7.5 MG TAB PO SCH (09:47)
[2020-07-11] MEDS ORDERED: oxyCODONE /ACETAMINOPHEN 5-325MG TAB PO SCH (11:00)
[2020-07-11] MEDS: SULFAMETHOXAZOLE/TRIMETHOPRIM 800/160MG DS TAB PO SCH ×2 (12:24→21:25)
--- NOTE | 2020-07-11 16:35 | Progress Note ---
Assessment and Plan - Patient Problems (1) Hypertension Current Visit: Yes Status: Acute Qualifiers: Hypertension type: essential hypertension Qualified Code(s): I10 - Essential (primary) hypertension Plan to address problem: Monitor blood pressure every shift, continue medical management. (2) Diabetes Current Visit: Yes Status: Acute Plan to address problem: Insulin protocol, consistent carbohydrate diet, Accu-Chek. History Interval history: 49 YO Female with HTN, DM, Obesity Hypoventilation Syndrome admitted to [facility] for Psychiatric stabilization. Patient seen and evaluated in the recreation room. Patient resting comfortably. No reported nursing events. Patient denies pain. Hospitalist Physical - Constitutional Vitals: Temp Pulse Resp BP Pulse Ox 98.0 F 98 H 18 107/76 97 07/11/20 08:08 07/11/20 09:46 07/11/20 08:08 07/11/20 09:46 07/11/20 08:08 General appearance: Present: no acute distress, well-nourished, obese - EENT Eyes: Present: PERRL, EOM intact ENT: hearing intact - Neck Neck: Present: supple - Respiratory Respiratory effort: normal Respiratory: bilateral: diminished - Cardiovascular Rhythm: regular Heart Sounds: Present: S1 & S2 - Extremities Extremities: no ischemia Peripheral Pulses: within normal limits - Abdominal General gastrointestinal: soft, non-tender, non-distended - Integumentary Integumentary: Present: clear, dry - Psychiatric Psychiatric: cooperative - Neurologic Neurologic: CNII-XII intact Results - Labs CBC & Chem 7: 07/07/20 10:13 07/07/20 10:13 Labs: Laboratory Last Values WBC 15.6 K/mm3 (4.5-11.0) H 07/07/20 10:13 RBC 5.29 M/mm3 (3.65-5.03) H 07/07/20 10:13 Hgb 14.6 gm/dl (10.1-14.3) H 07/07/20 10:13 Hct 45.2 % (30.3-42.9) H 07/07/20 10:13 MCV 85 fl (79-97) 07/07/20 10:13 MCH 28 pg (28-32) 07/07/20 10:13 MCHC 32 % (30-34) 07/07/20 10:13 RDW 17.7 % (13.2-15.2) H 07/07/20 10:13 Plt Count 393 K/mm3 (140-440) 07/07/20 10:13 Lymph % (Auto) 28.9 % (13.4-35.0) 07/07/20 10:13 [place] % (Auto) 7.2 % (0.0-7.3) 07/07/20 10:13 Eos % (Auto) 0.3 % (0.0-4.3) 07/07/20 10:13 Baso % (Auto) 0.3 % (0.0-1.8) 07/07/20 10:13 Lymph # (Auto) 4.5 K/mm3 (1.2-5.4) 07/07/20 10:13 [place] # (Auto) 1.1 K/mm3 (0.0-0.8) H 07/07/20 10:13 Eos # (Auto) 0.1 K/mm3 (0.0-0.4) 07/07/20 10:13 Baso # (Auto) 0.0 K/mm3 (0.0-0.1) 07/07/20 10:13 Seg Neutrophils % 63.3 % (40.0-70.0) 07/07/20 10:13 Seg Neutrophils # 9.9 K/mm3 (1.8-7.7) H 07/07/20 10:13 Sodium 140 mmol/L (137-145) 07/07/20 10:13 Potassium 3.3 mmol/L (3.6-5.0) L 07/07/20 10:13 Chloride 97.7 mmol/L (98-107) L 07/07/20 10:13 Carbon Dioxide 26 mmol/L (22-30) 07/07/20 10:13 Anion Gap 20 mmol/L 07/07/20 10:13 BUN 13 mg/dL (7-17) 07/07/20 10:13 Creatinine 1.1 mg/dL (0.6-1.2) 07/07/20 10:13 Estimated GFR 53 ml/min 07/07/20 10:13 BUN/Creatinine Ratio 12 % 07/07/20 10:13 Glucose 184 mg/dL (65-100) H 07/07/20 10:13 POC Glucose 95 mg/dL (70-105) 07/11/20 07:35 Hemoglobin A1c 5.8 % (4-6) 07/07/20 10:13 Calcium 10.2 mg/dL (8.4-10.2) 07/07/20 10:13 Total Bilirubin 0.40 mg/dL (0.1-1.2) 07/07/20 10:13 AST 28 units/L (5-40) 07/07/20 10:13 ALT 27 units/L (7-56) 07/07/20 10:13 Alkaline Phosphatase 81 units/L (35-129) 07/07/20 10:13 Total Protein 8.5 g/dL (6.3-8.2) H 07/07/20 10:13 Albumin 4.7 g/dL (3.9-5) 07/07/20 10:13 Albumin/Globulin Ratio 1.2 % 07/07/20 10:13 Triglycerides 178 mg/dL (2-149) H 07/07/20 10:13 Cholesterol 187 mg/dL (50-199) 07/07/20 10:13 LDL Cholesterol Direct 110 mg/dL (50-130) 07/07/20 10:13 HDL Cholesterol 47 mg/dL (40-59) 07/07/20 10:13 Cholesterol/HDL Ratio 3.97 % 07/07/20 10:13 TSH 0.534 mlU/mL (0.270-4.200) 07/07/20 10:13 Valproic Acid 49.1 ug/mL (50-100) L 07/10/20 13:09 Plasencia/IV: Voiding Method Toilet Active Medications - Current Medications Current Medications: Generic Name Dose Route Start Last Admin Trade Name Freq PRN Reason Stop Dose Admin Alprazolam 1 mg 07/07/20 22:00 07/11/20 09:43 Alprazolam 1 Mg Tab PO 1 mg BID TYLER Administration Alprazolam 0.25 mg 07/07/20 20:44 Alprazolam 0.25 Mg Tab PO BID PRN Anxiety Divalproex Sodium 500 mg 07/07/20 22:00 07/11/20 09:[address] 500 Mg Tab PO 500 mg BID TYLER Administration Gabapentin 400 mg 07/07/20 20:00 07/11/20 13:51 Gabapentin 400 Mg Cap PO 400 mg TID TYLER Administration Lisinopril 20 mg 07/07/20 16:00 07/11/20 09:46 Lisinopril 20 Mg Tab PO 20 mg DAILY TYLER Administration Meloxicam 7.5 mg 07/08/20 10:00 07/11/20 09:47 Meloxicam 7.5 Mg Tab PO 7.5 mg QDAY TYLER Administration Oxycodone/Acetaminophen 2 tab 07/11/20 14:00 07/11/20 13:51 Oxycodone /Acetaminophen 5-325mg Tab PO 2 tab TID TYLER Administration Prazosin HCl 3 mg 07/08/20 22:00 07/10/20 21:03 Prazosin 1 Mg Cap PO 3 mg QHS TYLER Administration Quetiapine Fumarate 300 mg 07/07/20 22:00 07/10/20 21:01 Quetiapine 100 Mg Tab PO 300 mg QHS TYLER Administration Trimethoprim/Sulfamethoxazole 1 each 07/07/20 22:00 07/11/20 12:24 Sulfamethoxazole/Trimethoprim 800/160mg Ds Tab PO 07/14/20 10:01 1 each BID TYLER Administration Protocol Venlafaxine HCl 150 mg 07/08/20 10:00 07/11/20 09:43 Venlafaxine 75 Mg Tab PO 150 mg DAILY TYLER Administration
[2020-07-11] MEDS: QUEtiapine 100 MG TAB PO SCH (21:24)
[2020-07-11] MEDS: PRAZOSIN 1 MG CAP PO SCH (21:25)
--- NOTE | 2020-07-12 08:08 | Progress Note ---
Subjective Date of service: 07/12/20 Principal diagnosis: MDD (major depressive disorder), recurrent episode, severe Subjective Comment: Psych Nurse: pt spent the evening in activity room watching television, pt is alert and orientedx4, calm and cooperative, able to make needs known, denies si/hi, denies a/v/h, consumed 100% of bedtime snack, medication compliant, no complaints voiced, no distress noted, will continue to monitor for safety. Psych Progress Patient reports speaking with her mom yesterday and says that makes her feel so much better knowing she is able to go back home and be with family again. She denies depressed mood, denies AVH or SI/HI. She endorses good sleep and appetite. Reason for inpatient: Plan to discharge today REVIEW OF SYSTEMS Constitutional: Negative for weight loss ENT: Negative for stridor Respiratory: Negative for cough or hemoptysis All other systems reviewed and are negative MENTAL STATUS EXAMINATION General Appearance and Behavior: Age appropriate, good hygiene, wearing appropriate clothes,, good eye contact Cooperation: Participating/engaged, Psychomotor Behavior: Psychomotor normal Mood: getting better Affect and affective range: congruent with affect Thought Process: logical Thought Content: within reality Speech: Normal rate, volume and rythm Intellectual Functioning: Average Suicidal Ideation: denies SI Homicidal Ideation: Denies HI Impulse Control: unimpaired Insight and Judgment: Improved insight and judgment Memory: Normal Attention: Normal Orientation: Alert, oriented Assessment and Plan - Psychiatric problem (1) MDD (major depressive disorder), recurrent episode, severe Current Visit: Yes Status: Acute F33.2 (2) Schizoaffective disorder Current Visit: Yes Status: Acute F25.9 Treatment Plan Continue current medications Patient admitted for inpatient psychiatric evaluation, medication adjustment and close monitoring The patient's behavior, mood, sleep and appetite will be closely monitored. Patient enrolled in individual and group therapeutic sessions and encouraged to attend. Patient provided with a safe and structured environment. Patient's physical health needs will be addressed by the Hospitalist. Hospit alist Consulted Labs including CBC, CMP, Lipid profile and Hemoglobin A1C levels ordered for baseline reference Social Assessment will be completed and the Technical Account Manager will work with patient and family to ensure a suitable and safe disposition Medication adjustment will be made as clinically indicated Usual Wellness Latter-Day/Preservation: - Start Trazodone 50 mg po QHS & 50 mg po QHS PRN between 10 PM & 2 AM for insomnia - Start Melatonin 5 mg po QHS to promote circadian rhythm - Start [place]-3 for brain health, reduce impulsivity, and as adjunctive treatment for mood disorder, continue upon discharge given overall benefits. - Start B1 prophylaxis with 200 mg po for 5 days The patient agreed on the treatment plan, understood the risk, benefit, alternative treatment, potential consequence of no treatment, and gave informed consent. Initial Certification Inpatient psych services: I certify that the inpatient psychiatric services are required for treatment that could reasonably be expected to improve the patient's condition. Estimated days: 3 Post hospital care: primary care provider, psychiatric provider Assessment and Plan - Patient Problems (1) MDD (major depressive disorder), recurrent episode, severe Current Visit: Yes Status: Acute (2) Schizoaffective disorder Current Visit: Yes Status: Acute Medications and Allergies Allergies Allergy/AdvReac Type Severity Reaction Status Date / Time No Known Allergies Allergy Unverified 07/07/20 06:19 Home Medications Medication Instructions Recorded Confirmed Last Taken Type ALPRAZolam 1 mg PO BID 07/07/20 07/07/20 Unknown History ALPRAZolam [Xanax TAB] 0.25 mg PO BID PRN 07/07/20 07/07/[address] [DepaKOTE DR] 500 mg PO BID 07/07/20 07/07/20 Unknown History Gabapentin 400 mg PO TID 07/07/20 07/07/20 Unknown History Percocet 10/325 mg 10 mg PO TID 07/07/20 07/07/20 Unknown History Quetiapine Fumarate [SEROquel] 300 mg PO HS 07/07/20 07/07/20 Unknown History Sulfamethoxazole/Trimethoprim 1 each PO BID 07/07/20 07/07/20 Unknown History [Bactrim DS TAB] Venlafaxine [Effexor] 150 mg PO DAILY 07/07/20 07/07/20 Unknown History lisinopriL [Zestril] 20 mg PO DAILY 07/07/20 07/07/20 Unknown History Active Meds: Active Medications Alprazolam (Alprazolam 1 Mg Tab) 1 mg PO BID TYLER Last Admin: 07/11/20 21:26 Dose: 1 mg Documented by: Alprazolam (Alprazolam 0.25 Mg Tab) 0.25 mg PO BID PRN PRN Reason: Anxiety Divalproex Sodium (Divalproex Dr 500 Mg Tab) 500 mg PO BID [facility] Last Admin: 07/11/20 21:25 Dose: 500 mg Documented by: Gabapentin (Gabapentin 400 Mg Cap) 400 mg PO TID [facility] Last Admin: 07/11/20 20:33 Dose: 400 mg Documented by: Lisinopril (Lisinopril 20 Mg Tab) 20 mg PO DAILY [facility] Last Admin: 07/11/20 09:46 Dose: 20 mg Documented by: Meloxicam (Meloxicam 7.5 Mg Tab) 7.5 mg PO QDAY [facility] Last Admin: 07/11/20 09:47 Dose: 7.5 mg Documented by: Oxycodone/Acetaminophen (Oxycodone /Acetaminophen 5-325mg Tab) 2 tab PO TID [facility] Last Admin: 07/11/20 20:33 Dose: 2 tab Documented by: Prazosin HCl (Prazosin 1 Mg Cap) 3 mg PO QHS [facility] Last Admin: 07/11/20 21:25 Dose: 3 mg Documented by: Quetiapine Fumarate (Quetiapine 100 Mg Tab) 300 mg PO QHS [facility] Last Admin: 07/11/20 21:24 Dose: 300 mg Documented by: Trimethoprim/Sulfamethoxazole (Sulfamethoxazole/Trimethoprim 800/160mg Ds Tab) 1 each PO BID [facility]; Protocol Stop: 07/14/20 10:01 Last Admin: 07/11/20 21:25 Dose: 1 each Documented by: Venlafaxine HCl (Venlafaxine 75 Mg Tab) 150 mg PO DAILY [facility] Last Admin: 07/11/20 09:43 Dose: 150 mg Documented by: Results - Results Labs/Vitals: Laboratory Last Values WBC 15.6 K/mm3 (4.5-11.0) H 07/07/20 10:13 RBC 5.29 M/mm3 (3.65-5.03) H 07/07/20 10:13 Hgb 14.6 gm/dl (10.1-14.3) H 07/07/20 10:13 Hct 45.2 % (30.3-42.9) H 07/07/20 10:13 MCV 85 fl (79-97) 07/07/20 10:13 MCH 28 pg (28-32) 07/07/20 10:13 MCHC 32 % (30-34) 07/07/20 10:13 RDW 17.7 % (13.2-15.2) H 07/07/20 10:13 Plt Count 393 K/mm3 (140-440) 07/07/20 10:13 Lymph % (Auto) 28.9 % (13.4-35.0) 07/07/20 10:13 [place] % (Auto) 7.2 % (0.0-7.3) 07/07/20 10:13 Eos % (Auto) 0.3 % (0.0-4.3) 07/07/20 10:13 Baso % (Auto) 0.3 % (0.0-1.8) 07/07/20 10:13 Lymph # (Auto) 4.5 K/mm3 (1.2-5.4) 07/07/20 10:13 [place] # (Auto) 1.1 K/mm3 (0.0-0.8) H 07/07/20 10:13 Eos # (Auto) 0.1 K/mm3 (0.0-0.4) 07/07/20 10:13 Baso # (Auto) 0.0 K/mm3 (0.0-0.1) 07/07/20 10:13 Seg Neutrophils % 63.3 % (40.0-70.0) 07/07/20 10:13 Seg Neutrophils # 9.9 K/mm3 (1.8-7.7) H 07/07/20 10:13 Sodium 140 mmol/L (137-145) 07/07/20 10:13 Potassium 3.3 mmol/L (3.6-5.0) L 07/07/20 10:13 Chloride 97.7 mmol/L (98-107) L 07/07/20 10:13 Carbon Dioxide 26 mmol/L (22-30) 07/07/20 10:13 Anion Gap 20 mmol/L 07/07/20 10:13 BUN 13 mg/dL (7-17) 07/07/20 10:13 Creatinine 1.1 mg/dL (0.6-1.2) 07/07/20 10:13 Estimated GFR 53 ml/min 07/07/20 10:13 BUN/Creatinine Ratio 12 % 07/07/20 10:13 Glucose 184 mg/dL (65-100) H 07/07/20 10:13 POC Glucose 92 mg/dL (70-105) 07/11/20 19:22 Hemoglobin A1c 5.8 % (4-6) 07/07/20 10:13 Calcium 10.2 mg/dL (8.4-10.2) 07/07/20 10:13 Total Bilirubin 0.40 mg/dL (0.1-1.2) 07/07/20 10:13 AST 28 units/L (5-40) 07/07/20 10:13 ALT 27 units/L (7-56) 07/07/20 10:13 Alkaline Phosphatase 81 units/L (35-129) 07/07/20 10:13 Total Protein 8.5 g/dL (6.3-8.2) H 07/07/20 10:13 Albumin 4.7 g/dL (3.9-5) 07/07/20 10:13 Albumin/Globulin Ratio 1.2 % 07/07/20 10:13 Triglycerides 178 mg/dL (2-149) H 07/07/20 10:13 Cholesterol 187 mg/dL (50-199) 07/07/20 10:13 LDL Cholesterol Direct 110 mg/dL (50-130) 07/07/20 10:13 HDL Cholesterol 47 mg/dL (40-59) 07/07/20 10:13 Cholesterol/HDL Ratio 3.97 % 07/07/20 10:13 TSH 0.534 mlU/mL (0.270-4.200) 07/07/20 10:13 Valproic Acid 49.1 ug/mL (50-100) L 07/10/20 13:09 Last Vital Signs Temp 97.9 F 07/11/20 20:00 Pulse 86 07/11/20 21:25 Resp 18 07/11/20 20:33 BP 110/81 07/11/20 21:25 Pulse Ox 97 07/11/20 20:00
[2020-07-12 08:31] VITALS: BP 117/75
[2020-07-12] MEDS: GABAPENTIN 400 MG CAP PO SCH (08:59)
[2020-07-12] MEDS: oxyCODONE /ACETAMINOPHEN 5-325MG TAB PO SCH (09:00)
[2020-07-12] MEDS: VENLAFAXINE 75 MG TAB PO SCH (09:17)
[2020-07-12] MEDS: DIVALPROEX DR 500 MG TAB PO SCH (09:17)
[2020-07-12] MEDS: LISINOPRIL 20 MG TAB PO SCH (09:17)
[2020-07-12] MEDS: ALPRAZolam 1 MG TAB PO SCH (09:17)
[2020-07-12] MEDS: MELOXICAM 7.5 MG TAB PO SCH (09:18)
[2020-07-12] MEDS: SULFAMETHOXAZOLE/TRIMETHOPRIM 800/160MG DS TAB PO SCH (09:50)
--- NOTE | 2020-07-12 09:56 | Discharge Summary ---
Providers - Providers Date of Admission: 07/07/20 09:50 Date of discharge: 07/12/20 Attending physician: JUSTINO PETTY MD 07/07/20 08:28 Consult to Physician [CONS] Routine Comment: Consulting Provider: ATYA CABALLERO Physician Instructions: Reason For Exam: manage medical conditions Primary care physician: [employer] INSPECTOR Hospitalization Reason for admission: MDD Condition: Good Hospital course: The patient was provided inpatient psychiatric treatment with safe and supportive environment, group/individual therapy, psychiatric medication, medication adjustment, adverse effect monitor, medical evaluation, medical treatment, social service assessment, social support meeting, placement assess ment and psycho-education. The patients mood, cognition, behavior, motivation, compliance to treatment and appreciation on family/social support are improved and stabilized. At the time of discharge, the patient had no suicidal ideas, no homicidal ideas, no aggressive thoughts, no endangering behavior and no debilitating adverse effects. The patient agareed on the treatment plan, understood the risk, benefit, alternative treatment, potential consequence of no treatment, and gave informed consent. Disposition: DC-30 STILL A PATIENT Allergies/Adverse Reactions: Allergies No Known Allergies Allergy (Unverified 07/07/20 06:19) Vital Signs: Last Vital Signs Temp 97.9 F 07/12/20 07:38 Pulse 95 H 07/12/20 09:17 Resp 18 07/12/20 07:38 BP 117/75 07/12/20 09:17 Pulse Ox 95 07/12/20 07:38 Last Lab: Laboratory Last Values WBC 15.6 K/mm3 (4.5-11.0) H 07/07/20 10:13 RBC 5.29 M/mm3 (3.65-5.03) H 07/07/20 10:13 Hgb 14.6 gm/dl (10.1-14.3) H 07/07/20 10:13 Hct 45.2 % (30.3-42.9) H 07/07/20 10:13 MCV 85 fl (79-97) 07/07/20 10:13 MCH 28 pg (28-32) 07/07/20 10:13 MCHC 32 % (30-34) 07/07/20 10:13 RDW 17.7 % (13.2-15.2) H 07/07/20 10:13 Plt Count 393 K/mm3 (140-440) 07/07/20 10:13 Lymph % (Auto) 28.9 % (13.4-35.0) 07/07/20 10:13 [place] % (Auto) 7.2 % (0.0-7.3) 07/07/20 10:13 Eos % (Auto) 0.3 % (0.0-4.3) 07/07/20 10:13 Baso % (Auto) 0.3 % (0.0-1.8) 07/07/20 10:13 Lymph # (Auto) 4.5 K/mm3 (1.2-5.4) 07/07/20 10:13 [place] # (Auto) 1.1 K/mm3 (0.0-0.8) H 07/07/20 10:13 Eos # (Auto) 0.1 K/mm3 (0.0-0.4) 07/07/20 10:13 Baso # (Auto) 0.0 K/mm3 (0.0-0.1) 07/07/20 10:13 Seg Neutrophils % 63.3 % (40.0-70.0) 07/07/20 10:13 Seg Neutrophils # 9.9 K/mm3 (1.8-7.7) H 07/07/20 10:13 Sodium 140 mmol/L (137-145) 07/07/20 10:13 Potassium 3.3 mmol/L (3.6-5.0) L 07/07/20 10:13 Chloride 97.7 mmol/L (98-107) L 07/07/20 10:13 Carbon Dioxide 26 mmol/L (22-30) 07/07/20 10:13 Anion Gap 20 mmol/L 07/07/20 10:13 BUN 13 mg/dL (7-17) 07/07/20 10:13 Creatinine 1.1 mg/dL (0.6-1.2) 07/07/20 10:13 Estimated GFR 53 ml/min 07/07/20 10:13 BUN/Creatinine Ratio 12 % 07/07/20 10:13 Glucose 184 mg/dL (65-100) H 07/07/20 10:13 POC Glucose 92 mg/dL (70-105) 07/11/20 19:22 Hemoglobin A1c 5.8 % (4-6) 07/07/20 10:13 Calcium 10.2 mg/dL (8.4-10.2) 07/07/20 10:13 Total Bilirubin 0.40 mg/dL (0.1-1.2) 07/07/20 10:13 AST 28 units/L (5-40) 07/07/20 10:13 ALT 27 units/L (7-56) 07/07/20 10:13 Alkaline Phosphatase 81 units/L (35-129) 07/07/20 10:13 Total Protein 8.5 g/dL (6.3-8.2) H 07/07/20 10:13 Albumin 4.7 g/dL (3.9-5) 07/07/20 10:13 Albumin/Globulin Ratio 1.2 % 07/07/20 10:13 Triglycerides 178 mg/dL (2-149) H 07/07/20 10:13 Cholesterol 187 mg/dL (50-199) 07/07/20 10:13 LDL Cholesterol Direct 110 mg/dL (50-130) 07/07/20 10:13 HDL Cholesterol 47 mg/dL (40-59) 07/07/20 10:13 Cholesterol/HDL Ratio 3.97 % 07/07/20 10:13 TSH 0.534 mlU/mL (0.270-4.200) 07/07/20 10:13 Valproic Acid 49.1 ug/mL (50-100) L 07/10/20 13:09 - Discharge Diagnoses (1) MDD (major depressive disorder), recurrent episode, severe Status: Acute (2) Schizoaffective disorder Status: Acute Core Measure Documentation - Palliative Care Palliative Care/ Comfort Measures: Not Applicable - Core Measures Any of the following diagnoses?: none Exam - Constitutional Vitals: Temp Pulse Resp BP Pulse Ox 97.9 F 95 H 18 117/75 95 07/12/20 07:38 07/12/20 09:17 07/12/20 07:38 07/12/20 09:17 07/12/20 07:38 General appearance: Present: no acute distress - EENT Eyes: Present: PERRL, EOM intact ENT: hearing intact, clear oral mucosa - Neck Neck: Present: supple, normal ROM - Respiratory Respiratory effort: normal - Abdominal Female genitourinary: Present: deferred - Rectal Rectal Exam: deferred - Integumentary Integumentary: Present: clear, warm, dry Plan Care Plan Goals: Goals: Maintain good and stable mental health. Plan of Treatment: The patient should be compliant with medications, not to use drugs and not to drink alcohol. The patient understands that if suicidal ideas, homicidal ideas, or any endangering thoughts arise, the patient should immediately seek for emergent assistance including but not limited to crisis hot line and emergency room. Follow up with outpatient Psychiatrist and PCP within 7 - 14 days of discharge. Follow up with: PRIMARY CARE,MD [Primary Care Provider] - 7 Days Prescriptions: Prazosin 3 mg PO QHS 30 Days #30 capsule QUEtiapine [SEROquel] 300 mg PO QHS 30 Days #[address] [Depakote Dr] 500 mg PO BID 30 Days #60 tab Venlafaxine [Effexor] 150 mg PO DAILY 30 Days #30 tablet
== END 2020-07-12 12:50 | disposition home or self-care (01) | DRG 885 ==
LOC: 3A 02:47 → UNDOADMIN 02:47 → 5A 09:50
PROVIDERS: ADMIT Psychiatry & Neurology Psychiatry; ATTEND Psychiatry & Neurology Psychiatry
DX: F33.2 Major depressive disorder, recurrent severe without psychotic features (principal); E66.2 Morbid (severe) obesity with alveolar hypoventilation; Z68.43 Body mass index [BMI] 50.0-59.9, adult; R65.10 Systemic inflammatory response syndrome (SIRS) of non-infectious origin without acute organ dysfunction; F25.9 Schizoaffective disorder, unspecified; I10 Essential (primary) hypertension; E11.9 Type 2 diabetes mellitus without complications; Z71.3 Dietary counseling and surveillance; Z83.3 Family history of diabetes mellitus; Z82.49 Family history of ischemic heart disease and other diseases of the circulatory system; Z79.84 Long term (current) use of oral hypoglycemic drugs
CPT/HCPCS: 36415; 80053; 80061; 80164; 82962; 83036; 84443; 85025; G0378